=== PATIENT | female | born 1995 | race Caucasian/White ===

== ENCOUNTER 2022-06-09 16:31 | Outpatient (CLI) | payer OTHER, SELFPAY ==
--- NOTE | ~2022-06-09 | US_ITS ---
EXAMINATION: US OB <=14 wk fetus w TV INDICATION: UNCERTAIN DATES TECHNIQUE: Sonography of the pelvis was performed by transabdominal and transvaginal techniques. COMPARISON: None. RESULT: Uterus: Orientation: Anteverted. 10.0 x 5.7 x 6.9 cm. Myometrium: homogeneous echogenicity. Gestation: - Intrauterine gestational sac: Single present. - Yolk sac: 1.23 cm . - Embryo: Single present. - Goldsmith rump length: 0.7 cm, corresponding gestational age 6 weeks, 4 days. -Gestational heart rate: absent . -Subgestational hematoma: Absent . Right ovary: 2.8 x 1.9 x 2.0 cm. Normal sonographic appearance with physiologic follicles. . . Left ovary: 3.4 x 1.5 x 1.3 cm. Normal sonographic appearance with physiologic follicles. . . Pelvis free fluid: None. IMPRESSION: heart motion not detected in this examination, at a crown-rump length of 0.7 cm. Enlarged yolk sac measuring 1.23 cm. Sonographic findings are consistent with failure. Estimated Gestational Age: 6 weeks, 4 days by crown rump length. DOMINIC by ultrasound 01/29/2023. Reviewed, dictated and finalized at location K. ER AND CRUSHER TENDER IMPRESSION: heart motion not detected in this examination, at a crown-rump length of 0.7 cm. Enlarged yolk sac measuring 1.23 cm. Sonographic findings are consisten t with failure. Estimated Gestational Age: 6 weeks, 4 days by crown rump length. DOMINIC by ultras ound 01/29/2023.
== END 2022-06-09 16:32 | disposition home or self-care (01) ==
PROVIDERS: Visit Provider Advanced Practice Midwife
DX: Z36.87 Encounter for antenatal screening for uncertain dates (principal); Z3A.00 Weeks of gestation of pregnancy not specified
CPT/HCPCS: 76801; 76817

== ENCOUNTER 2022-06-12 08:28 | Outpatient (RCR) | payer OTHER, SELFPAY | END 2022-09-08 23:59 | disposition home or self-care (01) | LOC: ANHLAB 08:28 | PROVIDERS: Visit Provider Obstetrics & Gynecology Gynecology | DX: O36.80X0 Pregnancy with inconclusive fetal viability, not applicable or unspecified (principal); Z3A.00 Weeks of gestation of pregnancy not specified | CPT/HCPCS: 36415; 84702 ==

== ENCOUNTER 2022-06-17 16:31 | Outpatient (CLI) | payer OTHER, SELFPAY ==
--- NOTE | ~2022-06-17 | US_ITS ---
EXAMINATION: US OB <=14 wk fetus w TV DATE: 06/17/2022 17:37 INDICATION: Viability. TECHNIQUE: Real-time transabdominal and transvaginal pelvic ultrasound was performed. COMPARISON: Ultrasound 06/09/2022 FINDINGS: TRANSABDOMINAL ULTRASOUND: The uterus measures 11.7 x 6.3 x 6.8 cm. TRANSVAGINAL ULTRASOUND: There is an intrauterine gestational sac with mean diameter of 2.6 cm. There is a 1.8 cm cyst in the gestational sac. A 5 mm echo may be the pole, which correlates with an estimated gestational age of 6 weeks and 2 day(s) (+/-) 4 day(s). heart motion is not identifi ed by M-mode Doppler. The right ovary measures 3.9 x 2.4 x 2.1 cm. The left ovary measures 3.3 x 1.5 x 1.6 cm. There is no free fluid in the pelvis. IMPRESSION: 1. Abnormal interval change in pole size suspicious for a failed . Correlate with ser ial beta-hCGs. Reviewed, dictated and finalized at location A. ICING MANAGER IMPRESSION: 1. Abnormal interval change in pole size suspicious for a failed pregnan cy. Correlate with serial beta-hCGs.
== END 2022-06-17 16:32 | disposition home or self-care (01) ==
PROVIDERS: Visit Provider Obstetrics & Gynecology Gynecology
DX: O36.80X0 Pregnancy with inconclusive fetal viability, not applicable or unspecified (principal)
CPT/HCPCS: 76801; 76817

== ENCOUNTER 2022-06-18 16:20 | Outpatient (CLI) | payer OTHER, SELFPAY | END 2022-06-18 16:21 | disposition home or self-care (01) | LOC: ANHLAB 16:23 | PROVIDERS: Visit Provider Obstetrics & Gynecology Gynecology | DX: O36.80X0 Pregnancy with inconclusive fetal viability, not applicable or unspecified (principal); Z3A.00 Weeks of gestation of pregnancy not specified | CPT/HCPCS: 36415; 84702 ==

== ENCOUNTER 2022-06-25 00:13 | Day surgery (SDC) | payer OTHER, SELFPAY ==
[2022-06-23 14:36] VITALS: BMI 20.2
--- NOTE | 2022-06-23 14:42 | PC.NURSE ---
Report to the Outpatient Waiting Room, entrance under the green pavilion located off [facility], at time 1400 on date 06/25/22. Planned Procedure Time: 1600. Time changes happen often and if your time is changed the preop area will call you the afternoon before. - You and your visitor will be asked to self-screen and do not enter if you have any COVID symptoms. - Only one visitor is requested with a max of two and NO children visitors are allowed at this time. - The patient visitor may be requested to leave or wait in car when not with patient due to distancing restrictions. - A mask is optional within the hospital at this time. Patients may have clear liquids (water, carbonated beverages, clear teas, apple juice) until 3 hours prior to surgery with a maximum of 20 ounces. - No food from midnight until time of surgery Take the following medications with a SIP of water the morning of surgery: N/A DO NOT STOP ANY OF YOUR OTHER PRESCRIPTION MEDICATIONS PRIOR TO SURGERY EXCEPT THE FOLLOWING Medications to discontinue per physician: N/A Date to take last dose: N/A Please no make-up, nail mozambican, hairspray, perfume, deodorant, or body powder the day of surgery. No jewelry (including any body piercings) or valuables the day of surgery, leave them at home. Please take a shower or bath the night before, or the morning of, surgery with an antibacterial soap. Wear comfortable, loose fitting clothing. - Jewelry must be removed prior to entering the operating room. Rings and piercings that are not removed may be cut off. - The hospital will not accept responsibility for valuables. - Please leave all valuables, including medications, at home the day of surgery. If you are going home after surgery, a licensed electric truck driver must drive you home. - NO public transportation without another adult if you receive anesthesia. - We recommend that an adult stay with you for 24 hours following discharge. - We also recommend that you do not drive, make important decision, drink alcoholic beverages, or take any drugs that were not prescribed by your health care provider for at least 24 hours after your discharge time. Follow any additional instructions given to you from your surgeon. If you or anyone in your household have experienced Covid symptoms in the past week, please notify your surgeon or the nurse liaison at the phone number below for possible testing. Telephone instructions given to PT - JONNATHAN RUIZ and asked if any additional questions and then verbalized understanding. Patient advised to call surgeon office or pre surgery nurse liaison [phone] if any additional questions.
[2022-06-25 14:05] VITALS: BP 108/69; PULSE 77; RESP 14; TEMP 36.9; O2SAT 99
[2022-06-25] MEDS: LACTATED RINGERS 1,000 ML 30 ML IV CONT (14:30)
--- NOTE | 2022-06-25 14:34 | PM.HPGS ---
History of Present Illness History of Present Illness Consent: Risks, benefits, and alternatives have been discussed and questions answered. Patient agrees to proceed with procedure. Chief complaint: Missed AB Narrative: Alondra Sanford is a 26 year old female with decreasing BHCG levels and no FHTs on u/s and no growth on u/s 1 week apart. Missed ab management reviewed in the office and patient prefers to proceed with D&C. Risks of infection, bleeding, and perforation reviewedd. Agreees to proceed. Review of Systems Review of Systems: no bleeding minimal cramping. PMFSH Past Medical History Medical History (Updated 06/25/22 @ 14:38 by Aliyah Chou MD) Anxiety Depression Surgical History Surgical History (Updated 06/25/22 @ 14:37 by Aliyah Chou MD) H/O breast biopsy benign cyst R 2012 Social History Social History Smoking status: Never smoker Alcohol intake: current Drinks per week: 3 Alcohol use details: WHEN NOT Substance use: never Substance use type: does not use Living arrangements: with family Spiritual care concerns: No Meds Home Medications and Allergies Home Medications Medication Instructions Recorded Confirmed Type No Home Medications 06/23/22 06/23/22 History Allergies Allergy/AdvReac Type Severity Reaction Status Date / Time No Known Allergies Allergy Verified 06/25/22 14:18 Exam Const: General: healthy appearing and alert Orientation/consciousness: patient oriented x3 Resp: Effort & Inspection: normal respiratory effort Auscultation: clear to auscultation bilaterally Cardio: Rate: regular rate Rhythm: regular rhythm GI: GI Palp: Yes Soft to palpation, No Tenderness to palpation present (GI) and No Palpable mass present : External Female Exam: normal external appearance Speculum Exam - Vagina: normal appearance of the vagina and normal vaginal discharge Speculum Exam - Cervix: normal appearance of the cervix Bimanual exam- vagina & uterus: uterine size normal and consistency normal Bimanual Exam- Adnexa, other: normal adnexae and No adnexal tenderness Neuro: General: patient oriented x3 Assessment and Plan Assessment and plan (1) Missed : Code(s): O02.1 - Missed Status: Acute Assessment and Plan: plan to proceed with suction D&C
[2022-06-25] MEDS: ACETAMINOPHEN 500 MG TABLET 1000 MG PO (14:41)
--- NOTE | 2022-06-25 15:01 | P.PNAN_ITS ---
Anes - Initial Pre Proc Eval Procedure: Operation Date: 06/25/22 16:00 Proposed Procedures p Suction Dilation Curettage - Aliyah Chou MD Date/Time: 06/25/22 15:01 Surgeon: Aliyah Chou MD Pre Op Diagnosis: Missed AB Patient Data Age: 26 Gender: F Height: 1.73 m Weight: 59.8 kg Last Vital Signs Temp 36.9 C 06/25/22 14:05 Pulse 77 06/25/22 14:05 Resp 14 06/25/22 14:05 BP 108/69 06/25/22 14:05 Pulse Ox 99 06/25/22 14:05 O2 Del Method Room Air 06/25/22 14:05 Allergies Allergy/AdvReac Type Severity Reaction Status Date / Time No Known Allergies Allergy Verified 06/25/22 14:18 Home Medications Medication Instructions Recorded Confirmed Type No Home Medications 06/23/22 06/23/22 History Patient hx anesthesia problems: none Family hx anesthesia problems: none Results Review: All pre-operative results and documents have been reviewed as part of the pre- operative evaluation. PMFSH Past Medical History Medical History (Updated 06/25/22 @ 14:38 by Aliyah Chou MD) Anxiety Depression Surgical History Surgical History (Updated 06/25/22 @ 14:37 by Aliyah Chou MD) H/O breast biopsy benign cyst R 2012 Social History Social History Smoking status: Never smoker Alcohol intake: current Drinks per week: 3 Alcohol use details: WHEN NOT Substance use: never Substance use type: does not use Living arrangements: with family Spiritual care concerns: No Anes - Eval Final PreProcedure Day of Procedure 06/25/22 15:01 Patient weight: normal Heart: regular rate and rhythm Lungs: clear to auscultation and normal air movement Airway: Mallampati scale class II Neurological: alert and oriented Last oral intake: >/= 8 hours ASA classification: II Emergent: no Anesthetic plan: proceed Anesthesia type and monitoring: general GIVS Results Review: All pre-operative results and documents have been reviewed as part of the pre- operative evaluation. Informed Consent: The patient's anesthetic plan and its attendant risks and benefits were discussed with the patient/family/POA. Questions were solicited and answers provided to the satisfaction of the patient/family/POA.
--- NOTE | 2022-06-25 15:52 | WPDHPUPDATE1 ---
History and Physical Update Update Date/Time: 06/25/22 15:52 History and Physical has been reviewed, including an updated exam of the patient. There are NO changes in the patient's condition. Risks, benefits, and alternatives have been discussed and questions answered. Patient agrees to proceed with procedure.
[2022-06-25] MEDS: LIDOCAINE HCL 1% PF 30 ML VIAL 10 ML INFILTRATE (16:10)
--- NOTE | 2022-06-25 16:23 | W.PM.PROC2 ---
Procedure Note - Detailed Date of Procedure 06/25/22 Pre-op Diagnosis Missed AB Post-op Diagnosis Same Procedure Performed Suction D&C Surgeon Aliyah Chou MD Anesthesia MAC and Local Findings uterus sounds to 11.5cm at the start of the case and 8cm at the end of the case large products of conception Description of Procedure The patient is taken to the operating room and placed under anesthesia in the dorsal lithotomy position. She was prepped and draped in usual sterile fashion the bivalve speculum was placed. The cervix was grasped on the anterior lip with a tenaculum and injected with 1% lidocaine. The uterus is sounded to 11.5cm. The cervix is serially dilated to an 8 Hegar. The 8mm curved suction curette is used to evacuate the uterus until no further products were noted in the tubing. The sharp curette was then used to curette the endometrium until a good uterine cry was noted in all areas. The suction device is again placed and additional material was obtained. Suctioning was continued until no further products were noted in the tubing. All instruments were then removed. Patient is awakened from anesthesia and taken to recovery in stable condition. Sponge, needle, and instrument counts are correct per the OR staff. Estimated Blood Loss 100 (POC) Drains No Packing No Pathology Yes ( Products of conception) Complications No immediate complications Condition Stable Disposition PACU
[2022-06-25 16:24] VITALS: BP 105/65; PULSE 80; RESP 14; O2SAT 98
[2022-06-25 16:45] VITALS: BP 108/72; PULSE 69; RESP 14; O2SAT 98
[2022-06-25 17:10] VITALS: BP 118/88; PULSE 56; RESP 14
== END 2022-06-25 17:17 | disposition home or self-care (01) ==
PROVIDERS: Visit Provider Obstetrics & Gynecology Gynecology
PROC: (CPT 59820; principal; 2022-06-25 16:00)
DX: O02.1 Missed abortion (principal); Z3A.00 Weeks of gestation of pregnancy not specified
CPT/HCPCS: 59820; 36415; 85461; 86850; 86900; 86901; 88305; A9270; J2250; J2704; J3010; J7120

== ENCOUNTER 2022-12-07 08:29 | Outpatient (CLI) | payer OTHER, SELFPAY ==
[2022-12-07 09:30] LABS: Hemoglobin A1C 5.1 % (<5.7)
[2022-12-10 06:23] LABS: Progesterone 15.4 ng/mL (***)
[2022-12-11 11:59] LABS: Anti Mullerian Hormone,Female 3.49 ng/mL (0.69-13.39)
== END 2022-12-07 08:30 | disposition home or self-care (01) ==
LOC: ANHLAB 08:30
PROVIDERS: Visit Provider Student in an Organized Health Care Education/Training Program
DX: N91.5 Oligomenorrhea, unspecified (principal)
CPT/HCPCS: 36415; 83036; 84144; 84443

== ENCOUNTER 2022-12-20 10:14 | Outpatient (CLI) | payer OTHER, SELFPAY ==
[2022-12-24 05:03] LABS: Progesterone 26.8 ng/mL (***)
== END 2022-12-20 10:15 | disposition home or self-care (01) ==
LOC: ANHLAB 10:16
PROVIDERS: Visit Provider Student in an Organized Health Care Education/Training Program
DX: N94.89 Other specified conditions associated with female genital organs and menstrual cycle (principal)
CPT/HCPCS: 36415; 84144; 84702

== ENCOUNTER 2022-12-22 07:36 | Outpatient (CLI) | payer OTHER, SELFPAY | END 2022-12-22 07:37 | disposition home or self-care (01) | LOC: ANHLAB 07:38 | PROVIDERS: Visit Provider Student in an Organized Health Care Education/Training Program | DX: N94.89 Other specified conditions associated with female genital organs and menstrual cycle (principal) | CPT/HCPCS: 36415; 84702 ==

== ENCOUNTER 2023-01-03 13:28 | Outpatient (CLI) | payer OTHER, SELFPAY ==
[2023-01-03 13:58] LABS: Basophils Absolute Auto 0.1 K/mm3 (0.0-0.1); Basophils Percent Auto 0.5 % (0.2-1.2); Eosinophils Absolute Auto 0.1 K/mm3 (0-0.3); Eosinophils Percent Auto 0.7 % (0-4.4); Hematocrit 37.9 % (37.0-47.0); Hemoglobin 12.8 g/dL (12.0-15.0); Immature Granulocyte Absolute 0.03 K/mm3 (0.00-0.031); Immature Granulocyte Percent A 0.3 % (0-0.5); Lymphocytes Percent Auto 21.7 % (18.3-44.2); Mean Corpuscular HGB Conc 33.8 g/dl (32-36); Mean Platelet Volume 10.5 fl (7.4-10.4); Monocytes Absolute Auto 0.5 K/mm3 (0.1-0.6); Monocytes Percent Auto 5.2 % (2.6-8.5); Neutrophils Absolute Auto 6.9 K/mm3 (1.3-6.7); Neutrophils Percent Auto 71.6 % (45.5-73.1); Platelet Count Result 225 k/mm3 (150-375); Red Blood Count 4.26 M/mm3 (4.2-5.4); Red Cell Distribution Width 12.4 % (11.5-14.5); White Blood Count 9.7 K/mm3 (4.5-10.0)
[2023-01-03 14:51] LABS: HIV 1/2 Ab P24 Ag Result Negative (Negative)
[2023-01-03 15:13] LABS: Hepatitis B Surface Antigen Negative (Negative)
[2023-01-03 15:15] LABS: Hepatitis B Surface Antigen 0.09 S/C; Rubella IgG Antibody > 110.0 IU/ML
[2023-01-03 15:50] LABS: Rapid Plasma Reagin Non-Reactive (NonReactive)
[2023-01-11 19:26] LABS: SMA 2.0 RISK VARIANT NOT DETECTED
[2023-01-12 14:13] LABS: CF Result NEGATIVE (NEGATIVE); Ethnicity NG
[2023-01-21 14:36] LABS: SMA Results Received Yes
== END 2023-01-03 13:29 | disposition home or self-care (01) ==
LOC: ANHLAB 13:29
PROVIDERS: Visit Provider Student in an Organized Health Care Education/Training Program
DX: Z34.90 Encounter for supervision of normal pregnancy, unspecified, unspecified trimester (principal)
CPT/HCPCS: 36415; 81220; 81329; 84702; 85025; 85027; 86592; 86703; 86747; 86762; 86787; 86850; 86900; 86901; 87086; 87340; G0432

== ENCOUNTER 2023-06-28 13:43 | Outpatient (CLI) | payer OTHER, SELFPAY ==
--- NOTE | ~2023-06-28 | US_ITS ---
EXAMINATION: US OB follow up DATE: 06/28/2023 14:41 INDICATION: Encounter for supervision of normal during third trimester TECHNIQUE: Real-time ultrasound of the pelvis was performed. The interpreting radiologist was not pre sent for the study. COMPARISON: 04/06/2023 FINDINGS: There is a single living fetus in breech presentation. The placenta is anterior fundal. heart rate is 138 beats per minute (bpm). The amniotic fluid index is 12.3 cm, which is normal (5th%-95%: 8.8-23.8 cm at 31 weeks estimated gestational age). The following biometric data were obtained: BPD: 8.0 cm -> 32 weeks 1 days Head circumference: 30.2 cm -> 33 weeks 4 days Abdominal circumference: 28.3 cm -> 32 weeks 2 days Femur length: 6.1 cm -> 31 weeks 5 days These measurements are concordant. Head circumference to abdominal circumference ratio: 1.07 (normal range 0.96-1.13). Estimated weight: 1938 g (+/-) 291 g or 4 lbs. 4 oz. (+/-) 10 oz. IMPRESSION: 1. Single living fetus in breech presentation with heart rate of 138 bpm. 2. Normal amniotic fluid index of 12.3 cm. 3. Estimated weight is 52nd percentile by Hadlock criteria when 08/24/2023 is used as the estima karen date of delivery (DOMINIC). Please correlate with clinical information or earlier ultrasounds for mos t accurate DOMINIC. Reviewed, dictated and finalized at location A. HASING MANAGER/SALES IMPRESSION: 1. Single living fetus in breech presentation with heart rate of 138 bpm. 2. Normal amniotic fluid index of 12.3 cm. 3. Estimated weight is 52nd percentile by Hadlock criteria when 08/24/2023 is used as the estimated date of delivery (DOMINIC). Please correlate with clinica l information or earlier ultrasounds for most accurate DOMINIC.
== END 2023-06-28 13:44 | disposition home or self-care (01) ==
PROVIDERS: Visit Provider Obstetrics & Gynecology
DX: Z34.90 Encounter for supervision of normal pregnancy, unspecified, unspecified trimester (principal)
CPT/HCPCS: 76816

== ENCOUNTER 2023-08-20 10:40 | Outpatient (CLI) | payer OTHER, SELFPAY ==
[2023-08-20 11:19] LABS: Hematocrit 36.6 % (37.0-47.0); Hemoglobin 11.9 g/dL (12.0-15.0); Mean Corpuscular HGB Conc 32.5 g/dl (32-36); Mean Corpuscular Volume 89.1 fl (80-100); Mean Platelet Volume 11.8 fl (7.4-10.4); Platelet Count Result 180 k/mm3 (150-375); Red Blood Count 4.11 M/mm3 (4.2-5.4); Red Cell Distribution Width 13.8 % (11.5-14.5); White Blood Count 8.9 K/mm3 (4.5-10.0)
[2023-08-22 16:53] LABS: Rapid Plasma Reagin Non-Reactive (NonReactive)
== END 2023-08-20 10:41 | disposition home or self-care (01) ==
PROVIDERS: Visit Provider Student in an Organized Health Care Education/Training Program
DX: Z34.93 Encounter for supervision of normal pregnancy, unspecified, third trimester (principal); Z3A.00 Weeks of gestation of pregnancy not specified
CPT/HCPCS: 36415; 85027; 86592; 86850; 86900; 86901

== ENCOUNTER 2023-08-22 05:32 | Inpatient (IN) | payer OTHER, SELFPAY ==
[2023-08-22] VITALS (81 sets, daily range): BP systolic 103–140; BP diastolic 59–113; PULSE 48–106; RESP 12–20; TEMP 36.2–37; O2SAT 90–100; BMI 24.1
[2023-08-22] MEDS: ACETAMINOPHEN 500 MG TABLET 1000 MG PO (05:56)
[2023-08-22] MEDS: LACTATED RINGERS 1,000 ML 999 ML IV CONT ×2 (06:31→07:22)
--- NOTE | 2023-08-22 06:51 | LDADM ---
This patient, Alondra Sanford, was admitted to Labor/Delivery/Recovery 120 on 08/22/23 at 05:32. Plans for labor, pain management and were discussed with patient. Patient/family oriented to hospital policies and general routines including ID bracelet, bed and alarms, visiting hours, pain management, procedures, bathroom and other care routines, personal items, smoking policy, room service/diet and guest tray routines, infant security routines, and visiting hours. Patient/Family are encouraged to report perceived risks to care and to ask questions if they do not understand what they are told or what they should do. See OBIX for further documentation.
[2023-08-22] MEDS: FAMOTIDINE 20 MG/2 ML VIAL IV PUSH (07:05)
[2023-08-22] MEDS: ONDANSETRON INJ 4 MG/2 ML VIAL IV PUSH (07:10)
--- NOTE | 2023-08-22 07:21 | WPDANESEPPF ---
Anes - Initial Pre Proc Eval Procedure: Operation Date: 08/22/23 07:30 Proposed Procedures p Primary Section - Steven Dong MD Date/Time: 08/22/23 07:21 Surgeon: Steven Dong MD Pre Op Diagnosis: C/S Patient Data Age: 27 Gender: F Height: 1.73 m Weight: 72 kg Last Vital Signs Pulse 62 08/22/23 07:15 BP 134/88 08/22/23 07:15 Pulse Ox 98 08/22/23 07:13 Allergies Allergy/AdvReac Type Severity Reaction Status Date / Time No Known Allergies Allergy Verified 08/17/23 14:20 Home Medications Medication Instructions Recorded Confirmed Type vits no.126-ferrous fum 1 tablet PO DAILY 04/27/23 08/17/23 History 28 mg iron-folic acid 800 mcg tablet (Classic ) aspirin 81 mg chewable tablet 81 mg PO DAILY 06/29/23 08/17/23 History ferrous sulfate 325 mg (65 mg 325 mg PO DAILY 07/13/23 08/17/23 History iron) tablet Patient hx anesthesia problems: none Family hx anesthesia problems: none Results Review: All pre-operative results and documents have been reviewed as part of the pre-operative evaluation. [facility] Past Medical History Medical History Anxiety Depression Surgical History Surgical History H/O breast biopsy benign cyst R 2013 Family History Family History Father Diabetes mellitus Grandparent Diabetes mellitus Mother Hypertension Social History Social History Smoking status: Never smoker Second hand tobacco smoke exposure: No Alcohol intake: never Substance use: never Substance use type: does not use Do You Feel Safe in your Home?: Yes Lack of Transportation: No Lack of Food: Never True Current Housing: I Have Housing Concerned About Future Housing: No Difficulty Paying Gas/Electric Bills: No Difficulty Paying for Meds: No Currently Unemployed: No Education: Bachelor's Degree Difficulty w/ Childcare or Family Care: No Living arrangements: with family Additional living arrangements comments: 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 Gender identity (if verbalized by the patient): Female Sexual Orientation (if Verbalized by the Patient): Straight or Heterosexual Spiritual care concerns: No Anes - Eval Final PreProcedure Day of Procedure 08/22/23 07:21 Patient weight: normal Heart: regular rate and rhythm Lungs: clear to auscultation Airway: Mallampati scale class II Neurological: alert and oriented Last oral intake: >/= 8 hours ASA classification: II Emergent: no Anesthetic plan: proceed Anesthesia type and monitoring: regional spinal and standard monitoring Results Review: All pre-operative results and documents have been reviewed as part of the pre-operative evaluation. Informed Consent: The patient's anesthetic plan and its attendant risks and benefits were discussed with the patient/family/POA. Questions were solicited and answers provided to the satisfaction of the patient/family/POA.
--- NOTE | 2023-08-22 07:40 | PC.NURSE ---
Dr. Dong at , u/s shows fetus still breech at this time.
--- NOTE | 2023-08-22 07:42 | PM.IMHP ---
H&P: HPI History of Present Illness Date/Time: 08/22/23 07:42 Chief Complaint: Intrauterine at term malpresentation Narrative: 27 yo @ 39w5d who presents for primary for breech presentation. Review of Systems Cardiovascular: Cardiovascular: Denies chest pain, Denies leg edema, Denies palpitations, Denies dyspnea and Denies dyspnea on exertion Respiratory: Respiratory: Denies cough, Denies dyspnea and Denies dyspnea on exertion Gastrointestinal: Gastrointestinal: Denies abdominal pain, Denies constipation, Denies diarrhea, Denies nausea and Denies vomiting Genitourinary: Genitourinary: Denies hematuria, Denies urinary frequency, Denies dysuria, Denies pelvic pain, Denies urinary incontinence and Denies vaginal discharge Neurologic: Reports system reviewed and no additional complaints, except as documented Psychiatric: Psychiatric: Reports no additional psychiatric complaints Endocrine: Endocrine: Denies palpitations PMFSH Past Medical History Medical History Anxiety Depression Surgical History Surgical History H/O breast biopsy benign cyst R 2012 Family History Family History Father Diabetes mellitus Grandparent Diabetes mellitus Mother Hypertension Social History Social History Smoking status: Never smoker Second hand tobacco smoke exposure: No Alcohol intake: never Substance use: never Substance use type: does not use Do You Feel Safe in your Home?: Yes Lack of Transportation: No Lack of Food: Never True Current Housing: I Have Housing Concerned About Future Housing: No Difficulty Paying Gas/Electric Bills: No Difficulty Paying for Meds: No Currently Unemployed: No Education: Bachelor's Degree Difficulty w/ Childcare or Family Care: No Living arrangements: with family Additional living arrangements comments: 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 Gender identity (if verbalized by the patient): Female Sexual Orientation (if Verbalized by the Patient): Straight or Heterosexual Spiritual care concerns: No Meds Home Medications and Allergies Home Medications Medication Instructions Recorded Confirmed Type vits no.126-ferrous fum 1 tablet PO DAILY 04/27/23 08/17/23 History 28 mg iron-folic acid 800 mcg tablet (Classic ) aspirin 81 mg chewable tablet 81 mg PO DAILY 06/29/23 08/17/23 History ferrous sulfate 325 mg (65 mg 325 mg PO DAILY 07/13/23 08/17/23 History iron) tablet Allergies Allergy/AdvReac Type Severity Reaction Status Date / Time No Known Allergies Allergy Verified 08/17/23 14:20 Vital Signs Vital Signs - 24 hr 08/22/23 05:55 08/22/23 06:00 08/22/23 06:05 Temperature Pulse Rate 77 Blood Pressure 140/85 Pulse Oximetry 99 99 98 08/22/23 06:08 08/22/23 06:13 08/22/23 06:18 Temperature Pulse Rate Blood Pressure Pulse Oximetry 97 99 99 08/22/23 06:23 08/22/23 06:28 08/22/23 06:30 Temperature Pulse Rate 78 Blood Pressure 129/89 Pulse Oximetry 99 99 08/22/23 06:33 08/22/23 06:38 08/22/23 06:43 Temperature Pulse Rate Blood Pressure Pulse Oximetry 98 98 98 08/22/23 06:45 08/22/23 06:48 08/22/23 06:53 Temperature Pulse Rate 69 Blood Pressure 128/87 Pulse Oximetry 99 99 08/22/23 06:58 08/22/23 07:00 08/22/23 07:03 Temperature Pulse Rate 63 Blood Pressure 135/91 H Pulse Oximetry 98 98 08/22/23 07:08 08/22/23 07:13 08/22/23 07:15 Temperature 98.6 F Pulse Rate 62 Blood Pressure 134/88 Pulse Oximetry 100 98 Exam Const: General: no acute distress Eyes: EOM: EOMs i
[2023-08-22] MEDS: ceFAZolin 2 GM/D5W 50 ML 2 GM/50 ML BAG IVPB (07:45)
--- NOTE | 2023-08-22 08:42 | W.PM.OBCSD ---
OB - Delivery Note Procedure Delivery date: 08/22/23 Pre-op diagnosis: Breech Presentation Post-op Diagnosis: Same Induction method: None Delivery monitor: External FHT Prior to decision for section, ACOG/SMFM labor guidelines were considered and discussed with the patient and staff. Decision made to proceed with the section.: Yes Procedure Performed: Primary Primary branch: low cervical, transverse Surgeon: Steven Dong MD Anesthesia type: Spinal Description of Procedure/Findings: The patient was taken to the operating room. A combined spinal epidural anesthesic was administered and found to be adequate at a t-10 level. The patient was placed in a supine position with a slight left lateral tilt. A padilla catheter was placed with return of clear urine. A Bovie grounding pad was placed. Surgical prep was performed and surgical drapes were placed. A surgical time out was performed. A Pfannenstiel skin incision was then made with the scalpel and carried through to the underlying layer of fascia. The fascia was then incised in the midline and the incision was extended laterally with the Montesinos scissors. The superior aspect of the fascia was then grasped with the Aris clamps, elevated, and the underlying rectus muscles dissected off bluntly and sharply. Attention was then turned to the inferior aspect of this incision which, in a similar fashion, was grasped, tented up with the Aris clamps, and the rectus muscles dissected off both bluntly and sharply. The rectus muscles were then in the midline. The peritoneum was identified and entered bluntly. The peritoneal incision was then extended superiorly and inferiorly with good visualization of the bladder. The vesico-uterine serosa was identified and dissected to create a bladder flap. The bladder blade was reinserted. The uterus was inspected for rotation. A low-transverse uterine incision was made sharply with the scalpel and entry was made into the uterine cavity. An amniotomy was made and copious amounts of clear fluid were noted on return. The uterine incision was extended laterally bluntly. The bladder blade was removed. The buttocks was noted at the hysterotomy with spine anterior. The buttocks was delivered through the hysterotomy. The abdomen was wrapped in a blue towel and gentle traction was applied to deliver the fetus to the sternum. The fetus was then rotated to allow delivery of the right extremity by gently sweeping across the face and upper chest. Similar procedure was performed to deliver the left extremity. The head was then flexed and delivered through the hysterotomy with gentle traction. The nose and mouth were suctioned with a bulb syringe. The umbilical cord was clamped twice and cut. The was handed off to the waiting staff. A second segment of umbilical cord was clamped and cut for cord blood gasses. Cord blood was collected for determination of the blood type and for direct Barth. The placenta was delivered spontaneously without difficulty. The placenta appeared grossly normal and complete. The uterus was exteriorized and cleared of all clots and debris. The uterine incision was repaired using 0-monocryl suture in a running fashion. A second layer of 0 Monocryl suture was used in an imbricating fashion to obtain excellent hemostasis and uterine strength. The uterine closure was inspected for hemostasis. The posterior aspect of the uterus and the broad ligaments were inspected and the posterior cul-de-sac cleared of fluid and blood clots. The uterine closure was again inspected and found to be hemostatic. The uterus was returned to the abdominal cavity. The pericolic gutters were inspected and were cleared of all blood clots and debris. The uterine closure was then re inspected to ensure hemostasis as were all subfascial tissues. Hemaderm hemostatic agent was placed on the hysterotomy. The peritoneu
[2023-08-22] MEDS: OXYTOCIN 30 UNITS/NS 500 ML 30 UNITS/500 ML BAG 125 UNITS IV CONT (09:29)
--- NOTE | 2023-08-22 11:05 | PC.NURSE ---
Patient transferred to post room #287 via stretcher. Support person present. Oriented to unit, room, information board, rooming in, admission packet and security measures. Patient verbalizes understanding.
[2023-08-22] MEDS: ACETAMINOPHEN 325 MG TABLET 650 MG PO ×2 (11:57→19:03)
[2023-08-22] MEDS: KETOROLAC 15 MG/ML VIAL (*BKC) IV PUSH ×2 (11:57→19:03)
[2023-08-22] MEDS: DEXTROSE 5%/0.45% SOD CHL 1,000 ML 125 ML IV CONT (13:27)
[2023-08-22] MEDS: SIMETHICONE 80 MG TAB.CHEW PO (19:03)
--- NOTE | 2023-08-22 22:03 | PC.NURSE ---
2129 Introductions were made, then consulted with patient to assess needs related to . Mother led the conversation with her?plans to feed?her and the?experience so far. Encouraged understanding of the benefits of skin to skin (demonstrating unwrapping infant and placing upright on her chest), stimulating with massage touch, changing positions to encourage wakefulness, how to watch for early feeding cues, responsive feeding, feeding on demand (aiming for 8-12 times in 24 hours, about every 2-3 hours), milk production, building/maintaining a milk supply, duration of feeding, signs of adequate intake/output and how to record on the feeding sheet. Mother works well with her with encouragement and education. Reviewed positioning and ear, shoulder, hip alignment, supporting the breast to facilitate a deep latch, asymmetrical latch (off-center), leading with the chin with a big, open, wide gape and body close to mother. Infant latched optimally to the both breasts in cross cradle position. Education given to the mother of how to visualize the suckling (with good rocking jaw motion), swallows (dropping of the lower jaw) and how to listen for drinking at the breast (the ka sound). Infant was able to maintain latch without pain to mother protecting the nipple with optimal positioning and latching. Reviewed comfort measures of healing with a warm, wet washcloth to rinse breast, then leave open to air-dry, good handwashing when or touching the breast/nipples to prevent infection. Mother voiced understanding of skin to skin, stimulating with massage touch, responsive feedings, hand expressed colostrum, talking to infant to encourage if it has been 2 -2.5 hours since the start of the last , to call if does not latch, or if there is discomfort with . Resources used for education were facilitated with the mom and baby guide, Inpatient resources provided with the feeding sheet and the mom/baby guide. Parents voiced understanding of information, demonstrated learning and will call if there is a request for assistance. Reported to the Primary RN.
[2023-08-23] MEDS: ACETAMINOPHEN 325 MG TABLET 650 MG PO ×4 (01:03→19:17)
[2023-08-23] MEDS: KETOROLAC 15 MG/ML VIAL (*BKC) IV PUSH (01:03)
[2023-08-23 03:19] VITALS: BP 131/78; PULSE 50; RESP 18; TEMP 36.6; O2SAT 100
[2023-08-23 03:50] LABS: Basophils Absolute Auto 0.1 K/mm3 (0.0-0.1); Basophils Percent Auto 0.4 % (0.2-1.2); Eosinophils Percent Auto 0.2 % (0-4.4); Hematocrit 28.7 % (37.0-47.0); Hemoglobin 9.4 g/dL (12.0-15.0); Immature Granulocyte Absolute 0.06 K/mm3 (0.00-0.031); Immature Granulocyte Percent A 0.4 % (0-0.5); Lymphocytes Absolute Auto 2.12 K/mm3 (0.9-3.2); Lymphocytes Percent Auto 12.7 % (18.3-44.2); Mean Corpuscular HGB Conc 32.8 g/dl (32-36); Mean Corpuscular Hemoglobin 29.2 pg (26-34); Mean Corpuscular Volume 89.1 fl (80-100); Monocytes Absolute Auto 1.1 K/mm3 (0.1-0.6); Monocytes Percent Auto 6.3 % (2.6-8.5); Neutrophils Absolute Auto 13.4 K/mm3 (1.3-6.7); Platelet Count Result 150 k/mm3 (150-375); Red Blood Count 3.22 M/mm3 (4.2-5.4); White Blood Count 16.7 K/mm3 (4.5-10.0)
[2023-08-23] MEDS: DOCUSATE SODIUM 100 MG CAPSULE PO ×2 (07:17→17:21)
[2023-08-23] MEDS: POLYSACCHARIDE IRON COMPLEX 150 MG CAPSULE PO ×2 (07:17→17:21)
[2023-08-23] MEDS: SIMETHICONE 80 MG TAB.CHEW PO ×3 (07:17→17:21)
[2023-08-23] MEDS: MULTIVIT/MIN/PREN/FOL AC/IRON TABLET 1 TAB PO (07:17)
[2023-08-23] MEDS: IBUPROFEN 600 MG TABLET PO ×3 (07:21→19:17)
[2023-08-23 07:25] VITALS: BP 130/87; PULSE 59; RESP 18; TEMP 36.8; O2SAT 99
--- NOTE | 2023-08-23 07:46 | P.PNOB_ITS ---
OB - PN: Subj Subjective Date/time seen: 08/23/23 07:46 Patient comments: no complaints, pain well controlled and tolerating diet [place] baby status: doing well OB - PN: Obj Data Labs 08/23/23 02:59 Labs: Laboratory Results - last 24 hr 08/23/23 02:59 WBC 16.7 H RBC 3.22 L Hgb 9.4 L Hct 28.7 L MCV 89.1 MCH 29.2 MCHC 32.8 RDW 14.0 Plt Count 150 MPV 12.0 H Immature Gran % (Auto) 0.4 Neut % (Auto) 80.0 H Lymph % (Auto) 12.7 L [place] % (Auto) 6.3 Eos % (Auto) 0.2 Baso % (Auto) 0.4 Lymph # (Auto) 2.12 [place] # (Auto) 1.1 H Eos # (Auto) 0.0 Baso # (Auto) 0.1 Abs Immat Gran (auto) 0.06 H Absolute Neuts (auto) 13.4 H Absolute Nucleated RBC 0.000 Nucleated RBC % 0.0 OB - PN A/P Plan day: 1 Plan: routine care Comments: patient doing well H/H .09/24, will continue iron supplementation afebrile, VSS incision C/D/I padilla removed, voiding spontaneously continue routine post op care Time Spent With Patient Time: Total time spent is greater than 50% in coordination of care (as documented) at patient's floor/unit and/or counseling patient: Time with patient: less than 15 minutes Review of Systems Constitutional: Constitutional: Reports no additional constitutional complaints Cardiovascular: Cardiovascular: Reports no additional cardiovascular complaints Respiratory: Respiratory: Reports no additional respiratory complaints Gastrointestinal: Gastrointestinal: Reports no additional gastrointestinal complaints Genitourinary: Genitourinary: Reports no additional female genitourinary complaints Exam Const: General: comfortable and no acute distress Resp: Effort & Inspection: normal respiratory effort Auscultation: clear to auscultation bilaterally Cardio: Rate: regular rate GI: GI Palp: Yes Soft to palpation, Yes Tenderness to palpation present (GI) (around incision ) and No Guarding due to palpation present (GI) Auscultation: normal bowel sounds Other: incision C/D/I, covered with Dermabond Psych: Appearance: grossly normal Mental Status: mental status grossly normal Affect: normal affect
[2023-08-23] MEDS: HYDROcodone/acetaminophen (*CRX) 5-325 MG TABLET 1 TAB PO ×2 (09:51→17:23)
--- NOTE | 2023-08-23 11:39 | PC.NURSE ---
1110- 1130 Introductions were made and Mother verbalizes she is able to independently latch and is demonstrating [id number] with infant. She denies any nipple discomfort and is responsively . Infant is currently meeting outcomes for weight, output, jaundice, blood sugar and feeding frequencies of 8-12 times in 24 hours. Mother declines any additional assistance or education at this time. Mother is encouraged to call for assistance if her doesn?t latch, pain with latching, questions or concerns. Mother voiced understanding of information shared along with the feeding sheet for an additional resource.
[2023-08-23] MEDS: ONDANSETRON HCL ODT 4 MG TABLET PO (14:32)
--- NOTE | 2023-08-23 15:40 | WPDANLDPN2 ---
Anes-Prog Note L&D Date/Time: 08/23/23 15:40 Comfortable throughout: section Neuraxial method: spinal Epidural/Spinal procedure site: clean & non-tender Neuro status: Neuro function grossly intact. Cardiovascular status: normal Respiratory status: normal Airway patency: baseline Mental status: baseline Post-Op hydration status: normal Vital Signs: Last Vital Signs Temp 36.8 C 08/23/23 07:25 Pulse 59 L 08/23/23 07:25 Resp 18 08/23/23 07:25 BP 130/87 08/23/23 07:25 Pulse Ox 99 08/23/23 07:25 O2 Del Method Room Air 08/23/23 07:25 Pain score (VAS): 10 I/O: Intake & Output 08/22/23 08/23/23 08/23/23 23:59 07:59 15:59 Output Total 1700 Balance -1700 Post-procedural complaints: pruritis mild, no treatment Patient feedback: Patient satisfied with anesthetic care.
--- NOTE | 2023-08-23 15:40 | WPDANLDNPN2 ---
Anes-Prog Note L&D-Neuraxial Date/Time: 08/23/23 15:40 Neuraxial medications: intrathecal PF morphine Opiod-related complaints: pruritis mild, no treatment Patient feedback: Patient satisfied with post-operative pain management.
[2023-08-23 19:03] VITALS: BP 143/81; PULSE 65; RESP 18; TEMP 36.7; O2SAT 100
[2023-08-24] MEDS: IBUPROFEN 600 MG TABLET PO ×2 (04:50→12:02)
[2023-08-24] MEDS: ACETAMINOPHEN 325 MG TABLET 650 MG PO ×2 (04:50→12:02)
--- NOTE | 2023-08-24 07:00 | P.DS_ITS ---
DS: Admitting Diagnosis Discharge Date 08/24/23 Admitting Diagnosis intrauterine at term malpresentation DS: Discharge Diagnosis Discharge Diagnosis (1) Intrauterine normal : Code(s): Z34.90 - Encounter for supervision of normal , unspecified, unspecified trimester Status: Acute (2) malpresentation: Code(s): O32.9XX0 - Maternal care for malpresentation of fetus, unspecified, not applicable or unspecified Status: Acute (3) delivery delivered: Code(s): O82 - Encounter for delivery without indication Status: Acute OB - DS: Summary OB Procedures : None OB Procedures Intrapartum: OB Procedures: : None Peripartum Data Delivery Method: Section Procedures: Procedures Operation Date: 08/22/23 07:30 Actual Procedure Side Surgeon p Section Steven Dong MD complications: none Status at Discharge Functional status at discharge: independent ambulation Overall status at discharge: patient is progressing back to baseline Time Spent with Patient Time attestation: Total time spent providing and/or coordinating discharge services: Time spent: Less than 30 minutes Exam Const: General: comfortable and no acute distress Resp: Effort & Inspection: normal respiratory effort Auscultation: clear to auscultation bilaterally Cardio: Rate: regular rate GI: Inspection: non-distended GI Palp: Yes Soft to palpation, No Firmness to palpation present (GI), Yes Tenderness to palpation present (GI) (mild tenderness over incision ) and No Guarding due to palpation present (GI) Ausc ultation: normal bowel sounds Psych: Appearance: grossly normal Mental Status: mental status grossly normal Discharge Plan Discharge Discharging Clinician: Steven Dong Patient Disposition: Home, Self-Care Activity: as tolerated and pelvic rest Diet: regular Patient Instructions: Antibiotic Form, (DC) Stand Alone Forms: General Discharge Information Follow-up/Referrals: Steven Dong MD [Physician] - Discharge Medications: New oxycodone-acetaminophen 5-325 mg tablet 1 tablet PO Q6H PRN (Reason: pain) Qty: 28 0RF ibuprofen 600 mg tablet 600 mg PO Q6H PRN (Reason: pain) Qty: 30 0RF Continued ferrous sulfate 325 mg (65 mg iron) tablet 325 mg PO DAILY Classic 28 mg iron- 800 mcg tablet 1 tablet PO DAILY aspirin 81 mg tablet,chewable 81 mg PO DAILY Date of admission: 08/22/23 05:32 Primary Care Provider: Christina Obrien Admitting Provider: Steven Dong Attending physician on admission: Steven Dong Condition: Stable
[2023-08-24] MEDS: SIMETHICONE 80 MG TAB.CHEW PO ×2 (07:24→12:02)
[2023-08-24] MEDS: DOCUSATE SODIUM 100 MG CAPSULE PO (07:24)
[2023-08-24] MEDS: MULTIVIT/MIN/PREN/FOL AC/IRON TABLET 1 TAB PO (07:24)
[2023-08-24] MEDS: HYDROcodone/acetaminophen (*CRX) 5-325 MG TABLET 1 TAB PO (07:25)
[2023-08-24] MEDS: POLYSACCHARIDE IRON COMPLEX 150 MG CAPSULE PO (07:25)
[2023-08-24 07:30] VITALS: BP 127/84; PULSE 64; RESP 18; TEMP 36.6; O2SAT 98
--- NOTE | 2023-08-24 13:17 | PC.NURSE ---
[id number] Purposefully rounded to assess for needs. Parents are supplementing related to >9% weight loss and no void in 24 hours for their infant. Discussed with mother her successes, concerns and any questions she has including the possibility of the milk delay related to the primary section. Mother has independently latched to the right breast with no swallowing visualized. detached after 10 minutes to switch breast for swallowing. We reviewed working with the , supporting breast, protecting her nipples with an optimal deep latch, good positioning, and good hand washing. Encouraged understanding the benefits of skin to skin, responding to feeding cues, frequencies of feeding 8-12 times in 24 hours (approximately 2-3 hours), duration of feedings, milk production, intake/output feeding sheet and signs of adequate intake encouraging swallowing at the breast. Reviewed positioning and alignment, supporting breast, off-centered (asymmetrical latch) and leading with the chin with big, open, wide gape. Infant latched optimally to the left breast in cross cradle position. Education given to the mother of how to visualize the suckling (with good rocking jaw motion) swallows (dropping of the lower jaw) and how to listen for drinking at the breast (the ka sound) demonstrated swallowing after gently encouraging the to drop the jaw and take in more breast. Suck swallows visualized were 5:1, then at times 3:1. The infant was able to maintain latch without discomfort to mother. Mother encouraged to gently compress, massage breast, and she practices [id number] keeping warm with a blanket. Nipple care reviewed with optimal latch, good positioning and using clean hands when touching her breast. Resources used to facilitate learning were used from the tool/mom and baby guide. Parents voiced understanding of the education shared, to call for assistance if the does not latch or if there is discomfort with .
[2023-08-25 09:22] VITALS: BP 123/81; PULSE 80; RESP 18; TEMP 36.4; O2SAT 98
== END 2023-08-24 14:25 | disposition home or self-care (01) | DRG 788 ==
LOC: ANHLDR 05:38 → ANHOB2 11:25
PROVIDERS: Admitting Provider Student in an Organized Health Care Education/Training Program; Visit Provider Student in an Organized Health Care Education/Training Program
PROC: 10D00Z1 Extraction of Products of Conception, Low, Open Approach (ICD-10-PCS; CPT 59514; principal; 2023-08-22 07:30)
DX: O32.1XX0 Maternal care for breech presentation, not applicable or unspecified (principal); Z3A.39 39 weeks gestation of pregnancy; Z37.0 Single live birth; Z86.16 Personal history of COVID-19; Z79.82 Long term (current) use of aspirin
CPT/HCPCS: 36415; 85025; A9270; J0690; J1100; J1885; J2274; J2371; J2405; J2590; J7120

== ENCOUNTER 2025-02-20 06:35 | Inpatient (IN) | payer OTHER, SELFPAY ==
[2025-02-20] VITALS (108 sets, daily range): BP systolic 95–129; BP diastolic 51–93; PULSE 31–83; RESP 16–19; TEMP 36.1–36.8; O2SAT 94–100; BMI 23.4
--- OUTSIDE RECORDS SUMMARY | 2025-02-20 06:42 | XMS_ITS | Clinical Summary ---
Author Organization [facility] Address [address] [place] [address] Care Team Providers Care Fruit And Vegetable Packer Name Role Phone Unavailable Primary Care Provider Unavailabl e Source Comments [facility],non-owned Affiliates and Associated Physician Practices is amultiple site organization consisting of ambulatory clinics and hospital sitesin [place], [place], [place] and [place]. This disclosure is being madepursuant to the Care Everywhere program and may not contain all information available regarding this patient. Last updated 18.[facility] Social History Tobacco Use Types Packs/Day Years Used Date Smoking Tobacco: Never Assessed Comments Unknown Sex and Gender Information Value Date Recorded Sex Assigned at Not on file Legal Sex Female 12:53 PM CDT Gender Identity Not on file Sexual Orientation Not on file Plan of Treatment Health Maintenance Due Date Last Done Comments HIV SCREENING 2008 HEPATITIS C SCREENING 10/19/2011 DTAP/TDAP/TD VACCINES (1 - Tdap) 2012 HEPATITIS B VACCINE (1 of 3 - 19+ 3-dose series) 2012 HPV VACCINE (1 - 3-dose SCDM series) 2020 DEPRESSION SCREENING 05/30/2024 COVID-19 VACCINE ( - 2023-2 5 season) 2025 INFLUENZA VACCINE (#1) 2025 ZOSTER VACCINE (1 of 2) 10/24/2043 HIB VACCINE Aged Out No longer eligi ble based on patient's age to complete this topic MENINGOCOCCAL (Group B) VACC INE SHARED DECISION-MAKING Aged Out No longer eligibl e based on patient's age to complete this topic MENINGOCOCCAL GROUPS A/C/Y/W VACCINE Aged Out No longer eligible b ased on patient's age to complete this topic PNEUMOCOCCAL VACCINE Aged Out No long er eligible based on patient's age to complete this topic Insurance [employer]
--- OUTSIDE RECORDS SUMMARY | 2025-02-20 06:42 | XMS_ITS | Clinical Summary ---
Author Organization [facility] Address [address] [place] [address] Care Team Providers Care Slide Developer Name Role Phone Josselin Reese MD Primary Care Pro vider Allergies No known active allergies Medications No known medications Active Problems No known active problems Resolved Problems Problem Noted Date Diagnosed Date Resolved Date Spitz nevus of forearm, right 12/24/2019 01/11/2020 Mass of breast 05/05/2012 05/17/2019 Surgical History Surgery Date Site/Laterality Comments TONSILLECTOMY 05/30/2017 - 05/29/2018 CYST REMOVAL 05/30/2011 - 05/29/2012 Medical History Medical History Date Comments Spitz nevus of forearm, right 12/24/2019 Family History Medical History Relation Name Comments Diabetes Father Hypertension Father Hypertension Maternal Grandfather Hypertension Maternal Grandmother Hypertension Mother Diabetes Paternal Grandmother Relation Name Status Comments Father Maternal Grandfather Maternal Grandmother Mother Paternal Grandmother Social History Tobacco Use Types Packs/Day Years Used Date Smoking Tobacco: Never Smokeless Tobacco: Never Alcohol Use Standard Drinks/Week Comments Yes 2 (1 standard drink = 0.6 oz pur e alcohol) 1-2 X WEEK Personal Safety Answer Date Recorded Getting School Help Needed Not on file 07/24 Comments No Sex and Gender Information Value Date Recorded Sex Assigned at Not on file Legal Sex Female 4:11 AM CREATIVE/ART DIRECTOR Gender Identity Female 05/27/2020 3:48 PM CREATIVE/ART DIRECTOR Sexual Orientation Straight 05/27/2020 3: 48 PM CREATIVE/ART DIRECTOR 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 Not on file Not on fi le Obstetrics History Para Term AB IAB SAB Ectopic Multiple Livin g Live Births 0 0 0 0 0 0 0 0 0 0 0 Last Filed Vital Signs Vital Sign Reading Time Taken Comments Blood Pressure 112/62 06/12/2021 2:58 PM CREATIVE/ART DIRECTOR Pulse 80 12/24/2019 10:53 AM CDT Temperature 36 C (96.8 F) 05/28/2020 8:48 AM CREATIVE/ART DIRECTOR Respiratory Rate - - Oxygen Saturation - - Inhaled Oxygen Concentration - - Weight 59.8 kg (131 lb 12.8 oz) 06/12/2021 2:58 PM CREATIVE/ART DIRECTOR Height 172 cm (5' 7.72) 06/12/2021 2:58 PM CREATIVE/ART DIRECTOR Body Mass Index 20.21 06/12/2021 2:58 PM CREATIVE/ART DIRECTOR Plan of Treatment Not on file Insurance [facility] Uni2 O [facility] Uni[employer] O Care Teams Slide Developer Relationship Specialty Start Date End Date Josselin Reese MD PCP - General 09/20/16
--- OUTSIDE RECORDS SUMMARY | 2025-02-20 06:42 | XMS_ITS | Clinical Summary ---
Author Organization [facility] Address [address] [place] [address] Phone Care Team Providers Care Nut Picker Name Role Phone Unavailable Primary Care Provider Unavailabl e Allergies Active Allergy Reactions Criticality Noted Date Comments Cholestatin Runny Nose,Other (se e Comments) Medium 11/29/2017 Stuffy nose , watery eyes,headach Medications escitalopram (LEXAPRO) 10 MG Tablet Take 1 Tab by mouth daily. 90 Tab 02/08/2018 Active Active Problems Problem Noted Date Diagnosed Date S/P tonsillectomy 05/18/2018 Transient adjustment reaction with anxiety 12/15 Mononucleosis 12/08/2017 Immunizations Immunization Administration Dates Next Due DTAP VACCINE, UNSPECIFIED FORMULATION 09/24/1998 ,04/26/1995 DTP-Hib 04/20/1994,03/06/1994,01/05/1994 Hepatitis B Vaccine,unspecif ied Formulation 08/06/1994,1993,1993 Hib Vaccine,unspecified Formulation 02/01/1995 Human Papillomavirus Vaccine (HPV), quadrivalent 01/11/2013,12/22/2011 MMR Vaccine 09/24/1998,02/01/1995 Meningococcal MCV4O 12/22/2011 Meningococcal Vaccine, Unspe cified Formulation 12/03/2007 OPV 09/24/1998, 5,03/06/1994,01/05 TDAP Vaccine 12/20/2005 Family History Medical History Relation Name Comments No Known Problems Brother Diabetes Father No Known Problems Mother No Known Problems Sister Relation Name Status Comments Brother Alive Father Alive Mother Alive Sister Alive Social History Tobacco Use Types Packs/Day Years Used Date Smoking Tobacco: Never Smokeless Tobacco: Never Tobacco Cessation:Counseling Given: Yes Alcohol Use Standard Drinks/Week Comments Yes 2 (1 standard drink = 0.6 oz pur e alcohol) Weekends Sexually Active Control Partners Comments Never STILL VIRGIN Comments No Sex and Gender Information Value Date Recorded Sex Assigned at Not on file Legal Sex Female 8:03 PM CDT Gender Identity Not on file Sexual Orientation Not on file Occupation Industry Job Start Date Job End Date student Not on file Not on file Not on file Last Filed Vital Signs Vital Sign Reading Time Taken Comments Blood Pressure 110/64 06/02/2018 9:10 AM MARKLOGIC DEVELOPER Pulse 80 06/02/2018 9:10 AM MARKLOGIC DEVELOPER Temperature 36.7 C (98 F) 06/02/2018 9:10 AM MARKLOGIC DEVELOPER Respiratory Rate 16 06/02/2018 9:10 AM MARKLOGIC DEVELOPER Oxygen Saturation 98% 06/02/2018 9:10 AM MARKLOGIC DEVELOPER Inhaled Oxygen Concentration - - Weight 53.5 kg (118 lb) 06/02/2018 9:10 AM MARKLOGIC DEVELOPER Height 172.7 cm (5' 8) 06/02/2018 9:10 AM MARKLOGIC DEVELOPER Body Mass Index 17.94 06/02/2018 9:10 AM MARKLOGIC DEVELOPER Plan of Treatment Health Maintenance Due Date Last Done Comments Hepatitis C Virus (HCV) Screening 1993 Human Papillomavirus (HPV) Immunization (3 - 3-dose series) 04/05/2013 01/11/2013, 12/22/2011 Pap Smear 2014 DTaP/Tdap/Td Immunization (7 - Td or Tdap) 12/21/2015 12/20/2005, 09/24/1998, 04/26/1995, Additional history exists Td Immunization Every 10 Years (Adults With 1 Tdap) 12/21/2015 12/20/2005 Cervical Cancer Screening (CCS) 10/24/2023 HPV/Cotest 10/24/2023 Influenza Immunization (#1) 2025 SARS-COV-2 Immunization ( season) 2025 01/11/2021, 12/21/2020 Respiratory Syncytial Virus (RSV) Immunization (Adult) (1 - 1-dose 75+ series) 2068 Hepatitis B Immunization Completed 995, 1993, 1993 Meningococcal Immunization (ACWY) Completed 12/22/2011, 12/03/2007 Pneumococcal Immunization Combined Aged Out No longer eligible based on patient's age to complete this topic Rotavirus Immunization Aged Out No lo nger eligible based on patient's age to complete this topic
--- OUTSIDE RECORDS SUMMARY | 2025-02-20 06:42 | XMS_ITS | Clinical Summary ---
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 04/27/2023 Active Active Problems Estimated Date of Delivery Comme nts Yes 02/22/2025 No known active problems Encounters Date Type Department Care Team Description 01/29/2025 External Device Data [facility] ABSTRACTION Provider, Abstract 01/29/2025 External Device Data [facility] ABSTRACTION Provider, Abstract 01/29/2025 External Device Data [facility] ABSTRACTION Provider, Abstract 01/23/2025 9:10 AM CDT Office Visit [facility] [address] [address] Snehal Foote NP Superficial burn of multiple fingers of left hand excluding thumb, initial encounter (Primary Dx) from Last 3 Months Social History Tobacco Use Types Packs/Day Years Used Date Smoking Tobacco: Never Assessed Estimated Date of Delivery Comme nts Yes 02/22/2025 Sex and Gender Information Value Date Recorded Sex Assigned at Not on file Legal Sex Female 9:06 AM CDT Gender Identity Not on file Sexual Orientation Not on file Last Filed Vital Signs Vital Sign Reading Time Taken Comments Blood Pressure 123/89 01/23/2025 9:15 AM CDT Pulse 82 01/23/2025 9:15 AM CDT Temperature 36.6 C (97.9 F) 01/23/2025 9:15 AM CDT Respiratory Rate 18 01/23/2025 9:15 AM CDT Oxygen Saturation - - Inhaled Oxygen Concentration - - Weight 68.9 kg (152 lb) 01/23/2025 9:15 AM CDT Height 172.7 cm (5' 8) 01/23/2025 9:15 AM CDT Body Mass Index 23.11 01/23/2025 9:15 AM CDT Plan of Treatment Health Maintenance Due Date Last Done Comments HPV VACCINES (3 - 3-dose series) 04/05/2013 01/12/20 13, 12/22/2011 HPV/Cotest (21-29) 2014 DTAP/TDAP/TD VACCINES (5 - T d or Tdap) 12/21/2015 12/20/2005, 09/24/1998, 04/26/1995, Additional history exists CERVICAL CANCER SCREENING 10/24/2023 HPV/Cotest (30-65) 10/24/2023 PAP SMEAR 10/24/2023 INFLUENZA VACCINE (#1) 2024 HEPATITIS B VACCINES Completed 08/06/1994, 1993, 1993 RSV VACCINE (60+ or ) (No Doses Required) Completed Insurance [facility]
--- NOTE | 2025-02-20 06:58 | LDADM ---
This patient, Alondra Sanford, was admitted to Labor/Delivery/Recovery 103 on 02/20/25 at 06:35. Plans for labor, pain management and were discussed with patient. Patient/family oriented to hospital policies and general routines including ID bracelet, bed and alarms, visiting hours, pain management, procedures, bathroom and other care routines, personal items, smoking policy, room service/diet and guest tray routines, infant security routines, and visiting hours. Patient/Family are encouraged to report perceived risks to care and to ask questions if they do not understand what they are told or what they should do. See OBIX for further documentation.
--- NOTE | 2025-02-20 07:00 | WPDANESEPP ---
Anes - Eval Pre Procedure Procedure: labor epidural Date/Time: 02/20/25 07:00 Surgeon: payal Preop Diagnosis: pain during labor Pre Op Diagnosis: IOL Patient Data Age: 29 Gender: F Height: Weight: Last Vital Signs Pulse 77 02/20/25 06:55 BP 129/81 02/20/25 06:55 Allergies Allergy/AdvReac Type Severity Reaction Status Date / Time No Known Allergies Allergy Verified 02/15/25 13:57 Home Medications ?Medication ?Instructions ?Recorded ?Confirmed ?Type vits no.126-ferrous fum 1 tablet PO DAILY 04/27/23 02/15/25 History 28 mg iron-folic acid 800 mcg tablet (Classic ) Patient hx anesthesia problems: none Family hx anesthesia problems: none Results Review: All pre-operative results and documents have been reviewed as part of the pre-operative evaluation. [facility] Past Medical History Medical History Depression Anxiety Surgical History Surgical History History of delivery H/O breast biopsy benign cyst R 2013 Family History Family History Father Diabetes mellitus Grandparent Diabetes mellitus Mother Hypertension Social History Social History Smoking status: Never smoker Second hand tobacco smoke exposure: No Alcohol intake: never Substance use: never Substance use type: does not use Do You Feel Safe in your Home?: Yes Lack of Transportation: No Lack of Food: Never True Current Housing: I Have Housing Concerned About Future Housing: No Difficulty Paying Gas/Electric Bills: No Difficulty Paying for Meds: No Currently Unemployed: No Education: Master's Degree or Higher Difficulty w/ Childcare or Family Care: No Living arrangements: with family Additional living arrangements comments: 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
[2025-02-20 07:20] LABS: Hematocrit 36.0 % (37.0-47.0); Hemoglobin 11.8 g/dL (12.0-15.0); Immature Granulocyte Percent A 0.7 % (0-0.5); Lymphocytes Absolute Auto 2.28 K/mm3 (0.9-3.2); Mean Corpuscular HGB Conc 32.8 g/dl (32-36); Mean Corpuscular Hemoglobin 28.9 pg (26-34); Mean Corpuscular Volume 88.0 fl (80-100); Nucleated Red Blood Cells Absolute Auto 0.000 K/mm3 (0.0-0.012); Nucleated Red Blood Cells Perc 0.0 % (0.0-0.2); Platelet Count Result 193 k/mm3 (150-375); Red Blood Count 4.09 M/mm3 (4.2-5.4); White Blood Count 9.7 K/mm3 (4.5-10.0)
[2025-02-20] MEDS: LACTATED RINGERS 1,000 ML 125 ML IV CONT ×3 (07:30→11:57)
[2025-02-20] MEDS: OXYTOCIN 30 UNITS/NS 500 ML 30 UNITS/500 ML BAG IV CONT (07:31)
[2025-02-20 09:14] LABS: Syphilis IgG/IgM Antibody Non-Reactive (Nonreactive)
[2025-02-20] MEDS: ACETAMINOPHEN 500 MG TABLET 1000 MG PO (09:52)
--- NOTE | 2025-02-20 09:52 | P.HP_ITS ---
H&P: HPI History of Present Illness Date/Time: 02/20/25 09:52 Chief Complaint: Intrauterine at term history of Narrative: 29 yo who presents at 40w0d for IOL. is complicated by history of for breech presentation. Pt desires a TOLAC. Review of Systems Cardiovascular: Cardiovascular: Denies chest pain, Denies leg edema, Denies palpitations, Denies dyspnea and Denies dyspnea on exertion Respiratory: Respiratory: Denies cough, Denies dyspnea and Denies dyspnea on exertion Gastrointestinal: Gastrointestinal: Denies abdominal pain, Denies constipation, Denies diarrhea, Denies nausea and Denies vomiting Genitourinary: Genitourinary: Denies hematuria, Denies urinary frequency, Denies dysuria, Denies pelvic pain, Denies urinary incontinence and Denies vaginal discharge Neurologic: Reports system reviewed and no additional complaints, except as documented Psychiatric: Psychiatric: Reports no additional psychiatric complaints Endocrine: Endocrine: Denies palpitations PMFSH Past Medical History Medical History Depression Anxiety Surgical History Surgical History History of delivery H/O breast biopsy benign cyst R 2013 Family History Family History Father Diabetes mellitus Grandparent Diabetes mellitus Mother Hypertension Social History Social History Smoking status: Never smoker Second hand tobacco smoke exposure: No Alcohol intake: never Substance use: never Substance use type: does not use Do You Feel Safe in your Home?: Yes Lack of Transportation: No Lack of Food: Never True Current Housing: I Have Housing Concerned About Future Housing: No Difficulty Paying Gas/Electric Bills: No Difficulty Paying for Meds: No Currently Unemployed: No Education: Master's Degree or Higher Difficulty w/ Childcare or Family Care: No Living arrangements: with family Additional living arrangements comments: 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 Gender identity (if verbalized by the patient): Female Sexual Orientation (if Verbalized by the Patient): Straight or Heterosexual Spiritual care concerns: No Meds Home Medications and Allergies Home Medications ?Medication ?Instructions ?Recorded ?Confirmed ?Type vits no.126-ferrous fum 1 tablet PO DAILY 02/15/25 History 28 mg iron-folic acid 800 mcg tablet (Classic ) Allergies Allergy/AdvReac Type Severity Reaction Status Date / Time No Known Allergies Allergy Verified 02/15/25 13:57 Vital Signs Vital Signs - 24 hr 02/20/25 06:55 02/20/25 06:57 02/20/25 07:00 Pulse Rate 77 72 Blood Pressure 129/81 127/74 Pulse Oximetry Oxygen Delivery Room Air 02/20/25 07:18 02/20/25 07:23 02/20/25 07:28 Pulse Rate Blood Pressure Pulse Oximetry 94 94 94 Oxygen Delivery 02/20/25 07:30 02/20/25 07:33 02/20/25 07:38 Pulse Rate 76 Blood Pressure 123/82 Pulse Oximetry 96 95 Oxygen Delivery 02/20/25 07:43 02/20/25 07:45 02/20/25 07:48 Pulse Rate 65 Blood Pressure 105/76 Pulse Oximetry 95 95 Oxygen Delivery 02/20/25 07:53 02/20/25 07:58 02/20/25 08:00 Pulse Rate 83 Blood Pressure 120/93 H Pulse Oximetry 95 95 Oxygen Delivery 02/20/25 08:03 02/20/25 08:08 02/20/25 08:13 Pulse Rate Blood Pressure Pulse Oximetry 95 95 96 Oxygen Delivery 02/20/25 08:15 02/20/25 08:18 02/20/25 08:23 Pulse Rate 68 Blood Pressure 121/64 Pulse Oximetry 95 95 Oxygen Delivery 02/20/25 08:28 02/20/25 08:30 02/20/25 08:33 Pulse Rate 63 Blood Pressure 116/85 Pulse Oximetry 95 95 Oxygen Delivery 02/20/25 08:38 02/20/25 08:43 02/20/25 08:45 Pulse Rate 60 Blood Pressure 111/59 L Pulse Oximetry 95 94 Oxygen Delivery 02/20/25 08:48 02/20/25 08:57 02/20/25 09:00 Pulse Rate 52 L Blood Pressure 105/61 Pulse Oximetry 95 94 Oxygen Delivery 02/20/25 09:02 02/20/25 09:07 02/20/25 09:12 Pulse Rate Blood Pressure Pulse Oximetry 96 96 97 Oxygen Delivery 02/20/25 09:15 02/20/25 09:17 02/20/25 09:22 Pulse Rate 50 L Blood Pressure 103/55 L Pulse Oximetry 96 100 Oxygen Delivery 02/20/25 09:27 02/20/25 09:32 02/20/25 09:37 Pulse Rate Blood Pressure Pulse Oximetry 97 96 98 Oxygen Delivery 02/20/25 09:42 02/20/25 09:47 Pulse Rate Blood Pressure Pulse Oximetry 96 97 Oxygen Delivery Exam Const: General: no acute distress Eyes: EOM: EOMs intact bilaterally Neck: Neck: supple Thyroid: thyroid normal Chest: Breast/axilla inspection: normal inspection of the breasts Breast/axilla palpation: normal palpation of the breasts, normal palpation of the axillae and no axillary lymphadenopathy Resp: Effort & Inspection: normal respiratory effort Auscultation: clear to auscultation bilaterally Cardio: Rate: regular rate Rhythm: regular rhythm GI: Inspection: non-distended and other (Gravid) GI Palp: Yes Soft to palpation, No Tenderness to palpation present (GI) and No Guarding due to palpation present (GI) Auscultation: normal bowel sounds : Speculum Exam - Vagina: No vaginal bleeding OB/external & speculum: external exam normal; No vaginal bleeding Skin: General skin exam: normal color and no rashes or lesions noted Neuro: Cognition (Neuro): normal cognition Speech: normal speech Extrem: General: normal to inspection Psych: Mental Status: mental status grossly normal Affect: normal affect H&P: Results Labs Labs: Short CBC 02/20/25 Range/Units 06:51 WBC 9.7 (4.5-10.0) K/mm3 Hgb 11.8 L (12.0-15.0) g/dL Hct 36.0 L (37.0-47.0) % Plt Count 193 (150-375) k/mm3 Assessment and Plan Assessment and plan (1) History of delivery: Code(s): Z98.891 - History of uterine scar from previous surgery Status: Acute Assessment and Plan: 29 yo who presents at 40w0d pt elected for TOLAC discussed risks, benefits, alternatives planned for pitocin IOL GBS positive pitocin was started for IOL FHT were noted to have recurrent decelerations FHT had several prolonged decelerations cvx remains closed discussed IOL given current FHT status. recommended proceeding with repeat c- section due to intolerance of labor remote from delivery. (2) Intrauterine normal : Code(s): Z34.90 - Encounter for supervision of normal , unspecified, unspecified trimester Status: Acute
--- NOTE | 2025-02-20 11:33 | P.PNAN_ITS ---
Anes - Eval Pre Procedure Procedure: Operation Date: 02/20/25 09:40 Proposed Procedures p Section - Steven Dong MD Date/Time: 02/20/25 11:33 Surgeon: C section Preop Diagnosis: Previous c section Pre Op Diagnosis: IOL Patient Data Age: 29 Gender: F Height: 1.73 m Weight: 70 kg Last Vital Signs Pulse 60 02/20/25 11:31 BP 95/76 L 02/20/25 11:31 Pulse Ox 98 02/20/25 11:32 O2 Del Method Room Air 02/20/25 06:57 Allergies Allergy/AdvReac Type Severity Reaction Status Date / Time No Known Allergies Allergy Verified 02/15/25 13:57 Home Medications ?Medication ?Instructions ?Recorded ?Confirmed ?Type vits no.126-ferrous fum 1 tablet PO DAILY 02/15/25 History 28 mg iron-folic acid 800 mcg tablet (Classic ) Laboratory Tests 02/20/25 06:51 WBC 9.7 K/mm3 (4.5-10.0) RBC 4.09 L M/mm3 (4.2-5.4) Hgb 11.8 L g/dL (12.0-15.0) Hct 36.0 L % (37.0-47.0) MCV 88.0 fl (80-100) MCH 28.9 pg (26-34) MCHC 32.8 g/dl (32-36) RDW 13.2 % (11.5-14.5) Plt Count 193 k/mm3 (150-375) MPV 10.8 H fl (7.4-10.4) Immature Gran % (Auto) 0.7 H % (0-0.5) Neut % (Auto) 69.0 % (45.5-73.1) Lymph % (Auto) 23.4 % (18.3-44.2) [place] % (Auto) 5.7 % (2.6-8.5) Eos % (Auto) 0.8 % (0-4.4) Baso % (Auto) 0.4 % (0.2-1.2) Lymph # (Auto) 2.28 K/mm3 (0.9-3.2) [place] # (Auto) 0.6 K/mm3 (0.1-0.6) Eos # (Auto) 0.1 K/mm3 (0-0.3) Baso # (Auto) 0.0 K/mm3 (0.0-0.1) Abs Immat Gran (auto) 0.07 H K/mm3 (0.00-0.031) Absolute Neuts (auto) 6.7 K/mm3 (1.3-6.7) Absolute Nucleated RBC 0.000 K/mm3 (0.0-0.012) Nucleated RBC % 0.0 % (0.0-0.2) Syphilis IgG/IgM Ab Non-reactive (Nonreactive) Rubella IgG Antibody > 110.0 IU/ML (10 - ) Blood Type O Positive Antibody Screen Negative Patient hx anesthesia problems: none Family hx anesthesia problems: none Results Review: All pre-operative results and documents have been reviewed as part of the pre- operative evaluation. [facility] Past Medical History Medical History Intrauterine normal Depression Anxiety Surgical History Surgical History History of delivery H/O breast biopsy benign cyst R 2013 Family History Family History Father Diabetes mellitus Grandparent Diabetes mellitus Mother Hypertension Social History Social History Smoking status: Never smoker Second hand tobacco smoke exposure: No Alcohol intake: never Substance use: never Substance use type: does not use Do You Feel Safe in your Home?: Yes Lack of Transportation: No Lack of Food: Never True Current Housing: I Have Housing Concerned About Future Housing: No Difficulty Paying Gas/Electric Bills: No Difficulty Paying for Meds: No Currently Unemployed: No Education: Master's Degree or Higher Difficulty w/ Childcare or Family Care: No Living arrangements: with family Additional living arrangements comments: 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
[2025-02-20] MEDS: ONDANSETRON INJ 4 MG/2 ML VIAL IV PUSH (12:00)
[2025-02-20] MEDS: FAMOTIDINE 20 MG/2 ML VIAL IV PUSH (12:00)
--- NOTE | 2025-02-20 12:58 | P.PCNOB_ITS ---
OB - Delivery Note Procedure Delivery date: 02/20/25 Pre-op diagnosis: Failed Induction of Labor, Non-Reassuring Status and Previous Delivery Post-op Diagnosis: Same Induction method: Per Pitocin Protocol Delivery monitor: External FHT Prior to decision for section, ACOG/SMFM labor guidelines were considered and discussed with the patient and staff. Decision made to proceed with the section.: Yes Procedure Performed: Repeat Secondary branch: low cervical, transverse Surgeon: Steven Dong MD Anesthesia type: Spinal Description of Procedure/Findings: The patient was taken to the operating room. A combined spinal epidural anesthesic was administered and found to be adequate at a t-10 level. The patient was placed in a supine position with a slight left lateral tilt. A padilla catheter was placed with return of clear urine. A Bovie grounding pad was placed. Surgical prep was performed and surgical drapes were placed. A surgical time out was performed. A Pfannenstiel skin incision was then made with the scalpel and carried through to the underlying layer of fascia. The fascia was then incised in the midline and the incision was extended laterally with the Montesinos scissors. The superior aspect of the fascia was then grasped with the Aris clamps, elevated, and the underlying rectus muscles dissected off bluntly and sharply. Attention was then turned to the inferior aspect of this incision which, in a similar fashion, was grasped, tented up with the Aris clamps, and the rectus muscles dissected off both bluntly and sharply. The rectus muscles were then in the midline. The peritoneum was identified and entered bluntly. The peritoneal incision was then extended superiorly and inferiorly with good visualization of the bladder. The vesico-uterine serosa was identified and dissected to create a bladder flap. A ring retractor was placed for better visualization. The uterus was inspected for rotation. A low-transverse uterine incision was made sharply with the scalpel and entry was made into the uterine cavity. An amniotomy was made and copious amounts of meconium stained fluid was noted on return. The uterine incision was extended laterally bluntly. The bladder blade was removed and the fetus was delivered atraumatically. A nuchal cord x 2 was noted and reduced. The umbilical cord was clamped twice and cut. The was handed off to the waiting staff. At the time of the delivery, the had good color, tone and grimace. The infant cried with minimal stimulation. A second segment of umbilical cord was clamped and cut for cord blood gasses. Cord blood was collected for determination of the blood type and for direct Barth. The placenta was delivered spontaneously without difficulty. The placenta appeared grossly normal and complete. The uterus was exteriorized and cleared of all clots and debris. The uterine incision was repaired using 0-monocryl suture in a running fashion. A second layer of 0 Monocryl suture was used in an imbricating fashion to obtain excellent hemostasis and uterine strength. The uterine closure was inspected for hemostasis. The posterior aspect of the uterus and the broad ligaments were inspected and the posterior cul-de-sac cleared of fluid and blood clots. The uterine closure was again inspected and found to be hemostatic. The uterus was returned to the abdominal cavity. The pericolic gutters were inspected and were cleared of all blood clots and debris. The uterine closure was then re inspected to ensure hemostasis as were all subfascial tissues. The peritoneum was closed using 3-0 vicryl in a running fashion. The fascia was reapproximated with 0-vicryl in a running fashion. The subcutaneous tissue was irrigated and hemostasis achieved with electrocautery. The skin was closed with 4-0 vicryl in a subcuticular fashion. A sterile dressing was applied to the wound. The patient tolerated the procedure well. Sponge, lap and needle counts were correct times three. The patient was taken to recovery in stable condition and without anticipated complications. Specimen: No Estimated Blood Loss: 285 Drains: No Packing: No Pathology: None sent Complications: No immediate complications Condition: Stable Disposition: Floor [place] Baby Date of : 02/20/25 Gestational Age by Date: 40 Infant gender: Male Weight (pounds): 6 Weight (ounces): 0 presentation: vertex Placenta delivery description: Manual Removal Cord Vessel Description: 3 Vessels and Nuchal Cord (x2)
[2025-02-20] MEDS: OXYTOCIN 30 UNITS/NS 500 ML 30 UNITS/500 ML BAG 125 UNITS IV CONT (14:31)
[2025-02-20] MEDS: KETOROLAC 15 MG/ML VIAL (*BKC) IV PUSH (16:34)
[2025-02-20] MEDS: SIMETHICONE 80 MG TAB.CHEW PO (16:36)
[2025-02-20] MEDS: LANOLIN (LANSINOH) 7.5 GM CREAM 1 APPLIC (16:40)
--- NOTE | 2025-02-20 16:50 | PC.NURSE ---
1600. Patient transferred to post room #278 via bed. Support person present. Oriented to unit, room, information board, rooming in, admission packet and security measures. Patient verbalizes understanding.
[2025-02-20] MEDS: DEXTROSE 5%/0.45% SOD CHL 1,000 ML 125 ML IV CONT (20:32)
[2025-02-21 01:10] VITALS: BP 109/56; PULSE 53; RESP 16; TEMP 36.5; O2SAT 97
[2025-02-21] MEDS: KETOROLAC 15 MG/ML VIAL (*BKC) IV PUSH ×2 (01:23→07:50)
[2025-02-21] MEDS: ACETAMINOPHEN 500 MG TABLET 1000 MG PO ×4 (01:24→21:12)
[2025-02-21 04:50] LABS: Hematocrit 31.2 % (37.0-47.0); Hemoglobin 9.9 g/dL (12.0-15.0); Immature Granulocyte Percent A 0.3 % (0-0.5); Lymphocytes Absolute Auto 1.77 K/mm3 (0.9-3.2); Mean Corpuscular HGB Conc 31.7 g/dl (32-36); Mean Corpuscular Hemoglobin 29.1 pg (26-34); Mean Corpuscular Volume 91.8 fl (80-100); Nucleated Red Blood Cells Absolute Auto 0.000 K/mm3 (0.0-0.012); Nucleated Red Blood Cells Perc 0.0 % (0.0-0.2); Platelet Count Result 145 k/mm3 (150-375); Red Blood Count 3.40 M/mm3 (4.2-5.4); White Blood Count 11.8 K/mm3 (4.5-10.0)
[2025-02-21] MEDS: SIMETHICONE 80 MG TAB.CHEW PO ×2 (07:47→17:52)
[2025-02-21] MEDS: DOCUSATE SODIUM 100 MG CAPSULE PO (07:48)
--- NOTE | 2025-02-21 07:51 | P.PNOB_ITS ---
OB - PN: Subj Subjective Date/time seen: 02/21/25 07:51 Patient comments: no complaints, pain well controlled, tolerating diet and flatus present OB - PN: Obj Data Labs 02/21/25 04:27 Labs: Laboratory Results - last 24 hr 02/20/25 02/21/25 06:51 04:27 WBC 11.8 H RBC 3.40 L Hgb 9.9 L Hct 31.2 L MCV 91.8 MCH 29.1 MCHC 31.7 L RDW 13.2 Plt Count 145 L MPV 11.4 H Immature Gran % (Auto) 0.3 Neut % (Auto) 76.6 H Lymph % (Auto) 15.0 L [place] % (Auto) 6.9 Eos % (Auto) 0.9 Baso % (Auto) 0.3 Lymph # (Auto) 1.77 [place] # (Auto) 0.8 H Eos # (Auto) 0.1 Baso # (Auto) 0.0 Abs Immat Gran (auto) 0.04 H Absolute Neuts (auto) 9.0 H Absolute Nucleated RBC 0.000 Nucleated RBC % 0.0 Syphilis IgG/IgM Ab Non-reactive Rubella IgG Antibody > 110.0 Blood Type O Positive Antibody Screen Negative OB - PN A/P Plan day: 1 Plan: routine care Comments: patient doing well H/H , asymptomatic afebrile, VSS incision C/D/I padilla removed, voiding spontaneously patient declines circumcision continue routine post op care Time Spent With Patient Time: Total time spent is greater than 50% in coordination of care (as documented) at patient's floor/unit and/or counseling patient: Time with patient: less than 15 minutes Review of Systems 2 Constitutional: Constitutional: Reports no additional constitutional complaints Cardiovascular: Cardiovascular: Reports no additional cardiovascular complaints Respiratory: Respiratory: Reports no additional respiratory complaints Gastrointestinal: Gastrointestinal: Reports no additional gastrointestinal complaints Genitourinary: Genitourinary: Reports no additional female genitourinary complaints Exam 2 Const: General: comfortable and no acute distress Resp: Effort & Inspection: normal respiratory effort Auscultation: clear to auscultation bilaterally Cardio: Rate: regular rate GI: GI Palp: Yes Soft to palpation, Yes Tenderness to palpation present (GI) (around incision ) and No Guarding due to palpation present (GI) A uscultation: normal bowel sounds Other: incision C/D/I, covered with Dermabond Psych: Appearance: grossly normal Mental Status: mental status grossly normal Affect: normal affect
[2025-02-21 08:30] VITALS: BP 112/70; PULSE 100; RESP 16; TEMP 37; O2SAT 100
[2025-02-21 11:47] VITALS: BP 119/75; PULSE 74; RESP 16; TEMP 36.8; O2SAT 98
[2025-02-21] MEDS: IBUPROFEN 600 MG TABLET PO ×2 (14:15→21:12)
--- NOTE | 2025-02-21 16:59 | WPDANLDNPN2 ---
Anes-Prog Note L&D-Neuraxial Date/Time: 02/21/25 16:59 Patient feedback: Patient satisfied with post-operative pain management.
--- NOTE | 2025-02-21 16:59 | WPDANLDPN2 ---
Anes-Prog Note L&D Date/Time: 02/21/25 16:59 Neuro status: Neuro function grossly intact. Cardiovascular status: normal Respiratory status: normal Airway patency: baseline Mental status: baseline Post-Op hydration status: normal Vital Signs: Last Vital Signs Temp 36.8 C 02/21/25 11:47 Pulse 74 02/21/25 11:47 Resp 16 02/21/25 11:47 BP 119/75 02/21/25 11:47 Pulse Ox 98 02/21/25 11:47 O2 Del Method Room Air 02/20/25 20:00 Pain score (VAS): 0 I/O: Intake & Output 02/21/25 02/21/25 02/21/25 07:59 15:59 23:59 Output Total 2700 Balance -2700 Post-procedural complaints: none Patient feedback: Patient satisfied with anesthetic care.
[2025-02-21 19:40] VITALS: BP 116/65; PULSE 60; RESP 16; TEMP 36.8; O2SAT 99
[2025-02-22] MEDS: IBUPROFEN 600 MG TABLET PO (08:00)
[2025-02-22] MEDS: MULTIVIT/MIN/PREN/FOL AC/IRON TABLET 1 TAB PO (08:00)
[2025-02-22] MEDS: ACETAMINOPHEN 500 MG TABLET 1000 MG PO (08:00)
[2025-02-22] MEDS: SIMETHICONE 80 MG TAB.CHEW PO (08:00)
[2025-02-22 08:40] VITALS: BP 120/79; PULSE 75; RESP 16; TEMP 36.9; O2SAT 98
--- NOTE | 2025-02-22 10:55 | PC.NURSE ---
Consulted with mother concerning needs and she shared her ability to independently latch infant optimally without pain. is currently latched optimally to mother's right breast in cradle position. Mother is feeding appropriately for growth of infant and understands stimulating to eat if needed. has had appropriate feedings in the last 24 hours meets the outcomes for weight, output, blood sugar and jaundice at this time. Reinforced understanding of milk production, transition of milk, signs of adequate intake, transition of stool, prevention/relief of engorgement, plugged ducts, mastitis, responsive watching for feeding cues, the different methods of stimulating infant to breastfeed 1-3 hours after the start of the last feeding, community resources, and when to call a provider using the resource of the feeding sheet along with the mom and baby guide. Mother voiced understanding of the information shared, is confident to continue effectively her infant at home, when to call for assistance, denies any additional assistance or education at this time. Reported to the Primary RN.
[2025-02-22 14:20] VITALS: BP 113/62; PULSE 62; RESP 18; O2SAT 100
--- NOTE | 2025-02-22 15:30 | PC.NURSE ---
RN at bedside removing abdominal pressure dressing. While removing dressing, 4 blisters were noted to be below the pressure dressing adhesive. Dressing was removed, non stick telfa dressing applied to blisters with paper tape. Patient advised to allow the blisters air dry once she is home.
--- NOTE | 2025-02-22 16:03 | P.DS_ITS ---
DS: Admitting Diagnosis Discharge Date 02/22/25 Admitting Diagnosis intrauterine at term prior TOLAC intolerance of labor DS: Discharge Diagnosis Discharge Diagnosis (1) delivery delivered: Code(s): O82 - Encounter for delivery without indication Status: Acute OB - DS: Summary OB Procedures : None OB Procedures Intrapartum: OB Procedures: : None Peripartum Data Delivery Method: Section Procedures: Procedures Operation Date: 02/20/25 09:40 Actual Procedure Side Surgeon p Section Not Applicable Steven Dong MD complications: none Status at Discharge Functional status at discharge: independent ambulation Overall status at discharge: patient is progressing back to baseline Time Spent with Patient Time attestation: Total time spent providing and/or coordinating discharge services: Time spent: Less than 30 minutes Exam Const: General: comfortable and no acute distress Resp: Effort & Inspection: normal respiratory effort Auscultation: clear to auscultation bilaterally Cardio: Rate: regular rate GI: Inspection: non-distended GI Palp: Yes Soft to palpation, No Firmness to palpation present (GI), Yes Tenderness to palpation present (GI) (mild tenderness over incision ) and No Guarding due to palpation present (GI) Auscultation: normal bowel sounds Psych: Appearance: grossly normal Mental Status: mental status grossly normal Discharge Plan Discharge Discharging Clinician: Steven Dong Patient Disposition: Home Activity: other - see discharge instructions Diet: regular Wound Care Instructions: other - see discharge instructions Discharge Instructions: Education: Mom and Baby Guide Given to: Mother Follow-Up: Call your delivering provider's office for an appointment to be seen in: 4 Weeks Mom and baby should come to the [facility] for the follow-up appointment. Appointment Date/Time: February 23, 2025 at 1:30 pm What to expect at your follow-up visit: Blood Pressure Check Physical Assessment Call [phone] if you are unable to keep your appointment time. BREAST CARE: * Wear a snug supportive bra. * For engorgement discomfort: Breast Feeding: * Apply warm moist washcloths * Express milk as needed to relieve engorgement * Wear loose clothing Bottle Feeding: * May apply ice packs * For sore nipples: * Identify correct latch-on * Apply warm moist washcloths before and after nursing * Air dry nipples after nursing * May apply Lansinoh cream to nipples ABDOMINAL INCISION: (if applicable) * Allow incision to air dry * Do NOT use lotions for powders on your incision * When showering, allow soap and water to run over the incision, but do not wash incision EPISIOTOMY/PERINEAL CARE: * Until bleeding stops, use your elvia bottle after urinating * Change your pad frequently throughout the day * You may take sitz baths several times a day (fill your bathtub with warm water and soak for 20 minutes.) Do NOT bathe in the water * No tub baths until seen by your physician - You may shower ACTIVITY: * Rest as much as possible. * Do not exercise or lift anything heavier than your baby (such as laundry or other children.) * Avoid stairs or driving as much as possible. * Do not put anything into the vagina. No douching, tampons, or sexual activity until seen by physician. NOTIFY PHYSICIAN IF YOU HAVE ANY QUESTIONS OR IF ANY OF THE FOLLOWING SYMPTOMS OCCUR: * If your episiotomy or incision becomes red, swollen, or more painful than what you have experienced in the hospital. * If your vaginal bleeding becomes foul smelling. * If your vaginal bleeding becomes more heavy than a period or if your bleeding changes from pink to bright red. However, you may pass an occasional walnut- sized clot once or twice for the first week . * If you experience a sharp, shooting pain in you calves. * If you discover a hard, reddened area on your breast or if you experience flu- like symptoms. DIET: * Eat regular, well-balanced meals. * Drink plenty of fluids daily. If , drink to thirst. Patient Language: Latvian Stand Alone Forms: General Discharge Information Follow-up/Referrals: Steven Dong MD [Physician, [employer]] Discharge Medications: New oxycodone-acetaminophen 5-325 mg tablet 1 tablet PO Q6H PRN (Reason: pain) Qty: 28 0RF ibuprofen 600 mg tablet 600 mg PO Q6H PRN (Reason: pain) Qty: 30 0RF Continued Classic 28 mg iron- 800 mcg tablet 1 tablet PO DAILY Date of admission: 02/20/25 06:35 Primary Care Provider: Elza,Christina Admitting Provider: Steven Dong Attending physician on admission: Steven Dong Condition: Stable
[2025-02-23 13:53] VITALS: BP 130/80; PULSE 64; RESP 18; TEMP 36.4; O2SAT 100
== END 2025-02-22 16:15 | disposition home or self-care (01) | DRG 788 ==
LOC: ANHLDR 13:05 → ANHOB2 16:07
PROVIDERS: Admitting Provider Student in an Organized Health Care Education/Training Program; PCP Physician Assistant; Visit Provider Student in an Organized Health Care Education/Training Program
PROC: 10D00Z1 Extraction of Products of Conception, Low, Open Approach (ICD-10-PCS; CPT 59514; principal; 2025-02-20 09:40)
DX: O34.211 Maternal care for low transverse scar from previous cesarean delivery (principal); Z37.0 Single live birth; Z3A.40 40 weeks gestation of pregnancy; O77.0 Labor and delivery complicated by meconium in amniotic fluid; O69.81X0 Labor and delivery complicated by cord around neck, without compression, not applicable or unspecified; O99.824 Streptococcus B carrier state complicating childbirth; O76 Abnormality in fetal heart rate and rhythm complicating labor and delivery; O61.8 Other failed induction of labor
CPT/HCPCS: 36415; 85025; 86593; 86762; 86850; 86900; 86901; A9270; J1885; J2274; J2371; J2405; J2590; J7120